=== PATIENT | female | born 1970 | race Caucasian/White ===

== ENCOUNTER 2019-05-30 08:21 | Day surgery (SDC) | payer BC ==
[~2019-05-30 08:21] MED LIST: Bupivacaine 0.5%/EPINEPHrine 1:200,000 50 ML MDV ONE
[2019-05-30] MEDS ORDERED: Acetaminophen 500 MG Tab PO ONE (08:30)
[2019-05-30] MEDS ORDERED: Propofol 200 MG/20 ML SDV ONE (08:43)
[2019-05-30] MEDS ORDERED: Glycopyrrolate 0.2 MG/ML 5 ML MDV ONE (08:43)
[2019-05-30] MEDS ORDERED: Ondansetron 4 MG/2 ML SDV ONE (08:43)
[2019-05-30] MEDS ORDERED: Dexamethasone 4 MG/ML SDV ONE (08:43)
[2019-05-30] MEDS ORDERED: Succinylcholine 200 MG/10 ML MDV ONE (08:43)
[2019-05-30] MEDS ORDERED: Neostigmine Methylsulfate 1 MG/ML 5 ML Syringe ONE (08:43)
[2019-05-30] MEDS ORDERED: Rocuronium 50 MG/5 ML Vial ONE (08:43)
[2019-05-30] MEDS ORDERED: fentaNYL 250 MCG/5 ML SDV ONE (08:43)
[2019-05-30] MEDS: Dextrose 5%-Lactated Ringers 1,000 ML IV SCH ×2 (09:31→12:28)
[2019-05-30] MEDS ORDERED: Scopolamine 1.5 MG Transdermal Patch TRDERM SCH (10:00)
[2019-05-30] MEDS ORDERED: cefOXitin 2 GM in Sodium Chloride 0.9% 50 ML IV ONE (10:00)
[2019-05-30] MEDS ORDERED: Ropivacaine 36 ML, dexAMETHasone 8 MG, EPINEPHrine 0.4 MG, Sodium Chloride 0.9% 41.6 ML NERVRT SCH ×4 (10:30)
[2019-05-30] MEDS ORDERED: Ondansetron 4 MG/2 ML SDV IVPUSH ONE (11:51)
[2019-05-30] MEDS ORDERED: HYDROmorphone 0.5 MG/0.5 ML Syringe IVPUSH PRN (12:37)
[2019-05-30] MEDS ORDERED: Ondansetron 4 MG/2 ML SDV IVPUSH PRN (12:37)
[2019-05-30] MEDS ORDERED: HYDROmorphone 1 MG/ML Syringe IV PRN (12:37)
[2019-05-30] MEDS ORDERED: SCOPOLAMINE PATCH CHECK TOP SCH (12:38)
[2019-05-30] MEDS ORDERED: Ketorolac 10 MG Tab PO PRN (12:40)
[2019-05-30] MEDS ORDERED: Albuterol 8 GM Inhaler INH PRN (12:41)
[2019-05-30] MEDS ORDERED: Pantoprazole 40 MG Vial IVPUSH SCH (14:00)
[2019-05-30] MEDS: cefOXitin 2 GM in Sodium Chloride 0.9% 50 ML IV SCH ×2 (15:21→22:18)
[2019-05-30] MEDS: Lactated Ringers 1,000 ML IV SCH (17:10)
[2019-05-30] MEDS ORDERED: Montelukast 10 MG Tab PO SCH (21:00)
[2019-05-30] MEDS: Fluticasone Propionate Nasal Spray 16 GM Bottle NASBOTH SCH (22:11)
[2019-05-30] MEDS: Acetaminophen/oxyCODONE 325-5 MG Tab PO PRN (22:36)
[2019-05-31] MEDS: Lactated Ringers 1,000 ML IV SCH (03:41)
[2019-05-31] MEDS: cefOXitin 2 GM in Sodium Chloride 0.9% 50 ML IV SCH (03:41)
[2019-05-31] MEDS ORDERED: Levothyroxine 100 MCG Tab PO SCH (07:30)
[2019-05-31] MEDS: Fluticasone Propionate Nasal Spray 16 GM Bottle NASBOTH SCH (08:06)
[2019-05-31] MEDS: Acetaminophen/oxyCODONE 325-5 MG Tab PO PRN (08:07)
[2019-05-31] MEDS ORDERED: Lisinopril 2.5 MG Tab PO SCH (09:00)
--- NOTE | 2019-05-31 09:02 | DISCH ---
ADMISSION DIAGNOSES: 1. Cholecystitis and cholelithiasis, chronic. 2. Umbilical hernia. 3. Type 1 diabetes mellitus. 4. Melanoma of upper arm, right. 5. Mixed hyperlipidemia. 6. Hypothyroidism. 7. Gastroesophageal reflux disease without esophagitis. 8. Status post [place] gastric bypass surgery. 9. Unspecified surgical malabsorption. 10.B12 deficiency. 11.B1 deficiency. 12.Vitamin D deficiency. DISCHARGE DIAGNOSES: Laparoscopic cholecystectomy and umbilical hernia repair for chronic cholecystitis and cholelithiasis and umbilical hernia. Date of surgery: 05/30/2019. Surgeon: Ty Hollis MD. HISTORY: Mariza Ramires is a 48-year-old female with cholecystitis and cholelithiasis. After preoperative evaluation and discussion of possible risks and possible complications, she wished to proceed with surgical procedure. HOSPITAL COURSE: Mariza had her surgery on 05/30/2019. She had no operative complications. On postoperative day #1, she was able to be discharged to home. PHYSICAL EXAMINATION: GENERAL: Mariza is a pleasant 48-year-old female. VITAL SIGNS: Height is 5 feet 4 inches, weight is 159 pounds, BMI is 27. TPR is 98.1, 81, 16, blood pressure 101/42. HEENT: Negative. NECK: Supple. HEART: Regular rate and rhythm. LUNGS: Clear. ABDOMEN: Dressings dry and intact. Abdominal binder is on. EXTREMITIES: Without peripheral edema. DISPOSITION: Discharged to home. CONDITION: Stable and improving. FOLLOWUP: Followup appointment with Viola Stephens PA-C, on 06/10/2019 at 11 a.m. HOME MEDICATIONS: Percocet 5/325 mg one tablet every 6 hours p.r.n. pain, #28. She is to resume her home medications. DIET: Step 3 gastric bypass diet for couple of days, then progress as tolerated. Drink 8 to 10 glasses of water a day. ACTIVITY: As tolerated. No lifting greater than 10 pounds for 2 weeks. Other activity: Walk at least 6 times daily inside your home. Do not drive for 1 week and while on pain medication. SHOWER/BATHING: May shower. Keep operative site clean and dry. Wear abdominal binder for 2 weeks and then as tolerated. Notify provider if any fever, increased pain, nausea, or vomiting. SPECIAL INSTRUCTIONS: Use incentive spirometer 10 times every hour while awake. Continue with insulin pump as before surgery. When driving home, to walk 10 minutes for every hour, in the car.
--- NOTE | 2019-06-01 15:23 | OR ---
DATE OF PROCEDURE: 05/30/2019 SURGEON: Ty Hollis MD PREOPERATIVE DIAGNOSES: Chronic cholecystitis and cholelithiasis. POSTOPERATIVE DIAGNOSES: 1. Chronic cholecystitis and cholelithiasis. 2. Umbilical hernia. OPERATIVE PROCEDURES: Diagnostic laparoscopy with: 1. Laparoscopic cholecystectomy (97850). 2. Umbilical hernia repair (68414). ANESTHESIA: General. RN EMPLOYEE HEALTH: Viola Stephens PA-C. INDICATIONS FOR PROCEDURE: This is a 48-year-old female presenting with recurrent upper abdominal pain. She was worked up by her Gastroenterology provider in [place], who recommended a cholecystectomy. The patient is to undergo a cholecystectomy at this time. Potential risks of the procedure including bleeding, infection, injury to common bile duct, possible migration of stones in the common bile duct requiring secondary procedures for correction were all reviewed, and the patient wishes to proceed. DETAILS OF PROCEDURE: The patient was taken to the operating room and placed in a supine position. After general endotracheal anesthesia was induced, the abdomen was prepped and draped. A transverse epigastric incision was made, and the peritoneal cavity entered under direct vision with an Optiview trocar and inflated to 15 mmHg pressure with CO2. Laparoscope was reinserted and no underlying trocar insertion site injuries were seen. A transverse infraumbilical incision was then made. The patient was noted to have a small umbilical hernia, which could be seen best from within the abdomen. The trocar was then brought through that area, which pushed out some preperitoneal fat located within the hernia. Following this, then a 5 mm subcostal trocar was placed on the right side as well and bilateral transversus abdominis plane blocks placed. The gallbladder was noted to have quite a bit in the way of omental adhesions and had somewhat of a sorenson appearance consistent with chronic cholecystitis. Those adhesions were taken down with Harmonic scalpel. Then, dissection continued around the gallbladder neck and cystic duct junction. Once that area was well delineated, along with the adjacent cystic artery, both structures were clipped 3 times proximally and once distally, and divided. The gallbladder was then dissected off the gallbladder bed using Harmonic scalpel and delivered through the epigastric trocar site. Examination of the contents of the gallbladder showed some sludge, as well as a single roughly pea-sized stone. The area of dissection was then inspected. No bleeding or bile leaks were seen. A drain was felt not to be necessary. The camera was then brought back up to the epigastric port, and removal of the umbilical trocar was then undertaken and that umbilical hernia then repaired with placement of the laparoscopic suture passer sutures, using 0 Vicryl stitch, closing the hernia with a transverse orientation. Once these were in place, the remaining trocars were removed and the peritoneal cavity deflated. The umbilical hernia sutures were then tied. Each of the incisions was closed with 4-0 Vicryl skin stitch. Dressing was applied. The patient was taken to the recovery room in satisfactory condition. Physician school bus driver/teacher assistant, Viola Stephens, played an essential role in assisting in this case, helping to position the patient, retract structures as needed, as well as suturing and cutting sutures when indicated. Her presence improved patient safety and decreased the operative time. Ty Hollis MD /[id number]
== END 2019-05-31 10:05 | disposition home or self-care (01) ==
LOC: JP.SDS 08:21 → JP.MS 11:45 → JP.SDS 05-31 10:05
PROVIDERS: ATTEND Surgery
DX: K80.10 Calculus of gallbladder with chronic cholecystitis without obstruction (principal); K82.8 Other specified diseases of gallbladder; K42.9 Umbilical hernia without obstruction or gangrene; I10 Essential (primary) hypertension; E10.3299 Type 1 diabetes mellitus with mild nonproliferative diabetic retinopathy without macular edema, unspecified eye; E78.2 Mixed hyperlipidemia; E53.8 Deficiency of other specified B group vitamins; E51.9 Thiamine deficiency, unspecified; E03.9 Hypothyroidism, unspecified; J45.909 Unspecified asthma, uncomplicated; K21.9 Gastro-esophageal reflux disease without esophagitis; C43.61 Malignant melanoma of right upper limb, including shoulder; D50.9 Iron deficiency anemia, unspecified; Z88.8 Allergy status to other drugs, medicaments and biological substances; Z88.4 Allergy status to anesthetic agent; Z88.5 Allergy status to narcotic agent; Z91.013 Allergy to seafood; Z98.84 Bariatric surgery status; Z87.891 Personal history of nicotine dependence; Z79.82 Long term (current) use of aspirin; Z79.51 Long term (current) use of inhaled steroids; Z79.899 Other long term (current) drug therapy
CPT/HCPCS: 36415; 80053; 81025; 82247; 83735; 84075; 84100; 85025; 85027; 88304; 94762; A9270-GY; C9113; J0171; J0330; J0694; J1100; J2405; J2704; J2710; J2795; J3010; J3490; J7042; J7050; J7120